=== PATIENT | male | born 1985 | race Caucasian/White ===

== ENCOUNTER 2017-06-21 02:08 | Emergency (ER) | payer SELFPAY ==
[~2017-06-21] VITALS: Ht 177.8 cm; Wt 104.3 kg
[~2017-06-21 02:08] MED LIST: AMOXICILLIN500 MG PO; ATIVAN1 MG PO; CLINDAMYCIN150 MG PO; KENALOG0.1% TP; LIDEX0.05% T; MOTRIN800 MG PO; PREDNICOT20 MG PO; ULTRACET 325 MG1 TAB PO; VICODIN 5/500 505 MG PO
[2017-06-21] MEDS ORDERED: Motrin,Rufen800 MG PO (02:47)
[2017-06-21] MEDS ORDERED: CLINDAMYCIN HC300 MG PO (02:47)
== END 2017-06-21 03:36 | disposition home or self-care (01) ==
LOC: ED 02:08
DX: K02.9 Dental caries, unspecified (principal); K04.7 Periapical abscess without sinus; F17.200 Nicotine dependence, unspecified, uncomplicated; Z88.0 Allergy status to penicillin

== ENCOUNTER 2017-08-22 15:25 | Emergency (ER) | payer BC ==
[~2017-08-22] VITALS: Ht 177.8 cm; Wt 104.3 kg
[~2017-08-22 15:25] MED LIST changes: +CLINDAMYCIN HC300 MG PO; +Motrin,Rufen800 MG PO
[2017-08-22 15:45] LABS: BILIRUBIN NEGATIVE (NEGATIVE); BLOOD NEGATIVE (NEGATIVE); CLARITY CLEAR (CLEAR); COLOR YELLOW (YELLOW); GLUCOSE NEGATIVE (NEGATIVE); KETONE NEGATIVE (NEGATIVE); LEUKO ESTERASE NEGATIVE (NEGATIVE); NITRITE NEGATIVE (NEGATIVE); PH 6.5 (5.0-9.0); SPECIFIC GRAVITY 1.015 (1.005-1.030); UROBILINOGEN 0.2 E.U./dl (0.2-1.0)
[2017-08-22 15:59] LABS: BACTERIA TRACE; RBC 0-2 rbc/hpf (0-2); WBC 0-2 wbc/hpf (0-5)
[2017-08-22 16:01] LABS: BASO # 0.1 10*3/uL (0.0-0.1); BASO % 0.6 % (0.0-1.0); EOS # 0.4 10*3/uL (0.0-0.4); EOS % 3.7 % (1.0-4.0); HEMATOCRIT 44.1 % (42.0-52.0); HEMOGLOBIN 15.4 g/dl (14.0-18.0); LYMPH # 2.3 10*3/uL (1.3-4.4); LYMPH % 19.8 % (27.0-41.0); MEAN CELL VOLUME 84.6 fl (80.0-94.0); MEAN CORPUSCULAR HGB 29.6 pg (27.0-31.0); MEAN CORPUSCULAR HGB CONC 34.9 g/dl (33.0-37.0); MEAN PLATELET VOLUME 9.8 fl (9.6-12.3); MONO # 0.8 10*3/uL (0.1-1.0); MONO % 6.8 % (3.0-9.0); NEUT # 7.8 10*3/uL (2.3-7.9); NEUT % 68.7 % (47.0-73.0); PLATELET COUNT AUTOMATED 226 10*3/uL (130-400); RED BLOOD COUNT 5.21 10*6/uL (4.50-5.90); WHITE BLOOD COUNT 11.4 10*3/uL (4.8-10.8)
[2017-08-22 16:17] LABS: ALKALINE PHOSPHATASE 113 U/L (45-117); BUN 13 mg/dl (7-24); CHLORIDE 105 mmol/L (98-107); CREATININE 1.01 mg/dL (0.70-1.30); LIPASE 117 U/L (73-393); POTASSIUM 3.9 mmol/L (3.5-5.1); SGOT/AST 32 IU/L (3-35); SGPT/ALT 60 U/L (12-78); SODIUM 140 mmol/L (136-145); TOTAL PROTEIN 7.5 gm/dL (6.4-8.2)
== END 2017-08-22 18:28 | disposition home or self-care (01) ==
LOC: ED 15:25
PROVIDERS: Nurse Practitioner Family
DX: K59.00 Constipation, unspecified (principal); R10.32 Left lower quadrant pain; F17.200 Nicotine dependence, unspecified, uncomplicated; Z98.890 Other specified postprocedural states; Z79.899 Other long term (current) drug therapy

== ENCOUNTER 2018-09-03 07:43 | Emergency (ER) | payer OTHER ==
[~2018-09-03] VITALS: Ht 177.8 cm; Wt 104.3 kg
[2018-09-03] MEDS ORDERED: AMOXICILLIN500 M2 PO (08:05)
== END 2018-09-03 08:10 | disposition home or self-care (01) ==
LOC: ED 07:43
DX: J02.9 Acute pharyngitis, unspecified (principal); R05 Cough; H92.02 Otalgia, left ear

== ENCOUNTER 2023-12-01 21:48 | Emergency (ER) | payer BC ==
[~2023-12-01] VITALS: Ht 177.8 cm; Wt 108.9 kg
[~2023-12-01 21:48] MED LIST changes: +AMOXICILLIN500 M2 PO
[2023-12-01] MEDS ORDERED: Bacitracin Zinc 14 GM TUBE T ONE (22:20)
== END 2023-12-01 22:38 | disposition home or self-care (01) ==
LOC: ED 21:48
DX: S61.011A Laceration without foreign body of right thumb without damage to nail, initial encounter (principal); Z98.890 Other specified postprocedural states; W23.0XXA Caught, crushed, jammed, or pinched between moving objects, initial encounter; Y93.89 Activity, other specified; Y92.89 Other specified places as the place of occurrence of the external cause; Y99.8 Other external cause status